=== PATIENT | female | born 1970 | race Hispanic/Latino ===

== ENCOUNTER → 2019-06-20 | Outpatient (CLI) | payer BC ==
[~2019-06-20] MED LIST: ALBUTER IH; BUDE10.2 IH; CALC1TAB PO; ESCI10TA54 PO; LEVO125T95 PO; MONT10TA24 PO; TOPI50TA24 PO; [UNRECOGNIZED DRUG - CODE] PO
== END | disposition home or self-care (01) ==
LOC: OIH 08:23
PROVIDERS: ATTEND Neurological Surgery
DX: M43.22 Fusion of spine, cervical region (principal); Z98.890 Other specified postprocedural states
CPT/HCPCS: 72040

== ENCOUNTER → 2019-09-19 | Outpatient (CLI) | payer BC | END | disposition home or self-care (01) | LOC: OIH 09:43 | PROVIDERS: ATTEND Neurological Surgery | DX: M47.812 Spondylosis without myelopathy or radiculopathy, cervical region (principal) | CPT/HCPCS: 72040 ==

== ENCOUNTER → 2020-01-12 | Outpatient (CLI) | payer BC ==
[~2020-01-12] MED LIST changes: -MONT10TA24 PO; +MONT10TA26 PO
[2020-01-12 10:21] LABS: BASOPHILS % (AUTO) 1.1 % (0.0-5.0); EOSINOPHILS % (AUTO) 2.8 % (0.0-8.0); HEMATOCRIT 36.5 % (36-48); LYMPHOCYTES % (AUTO) 35.6 % (21.0-51.0); MEAN CORPUSCULAR HEMOGLOBIN 28.8 pg (27.0-33.0); MEAN CORPUSCULAR HGB CONC 32.9 g/dL (32.0-36.0); MEAN CORPUSCULAR VOLUME 87.7 fL (79-99); MONOCYTES % (AUTO) 6.2 % (3.0-13.0); NEUTROPHILS % (AUTO) 54.1 % (40.0-77.0); PLATELET COUNT (AUTO) 280 K/uL (130-400); RED BLOOD CELL COUNT(AUTO) 4.16 MIL/uL (4.00-5.50); RED CELL DISTRIBUTION WIDTH 12.9 % (11.0-15.5); WHITE BLOOD COUNT (AUTO) 6.5 K/uL (4.8-10.8)
[2020-01-12 10:54] LABS: % IRON SATURATION 28.3 % (22-44)
== END | disposition home or self-care (01) ==
LOC: RAH 09:26
PROVIDERS: ATTEND Internal Medicine
DX: N28.1 Cyst of kidney, acquired (principal); Z90.49 Acquired absence of other specified parts of digestive tract
CPT/HCPCS: 36415; 76700; 82607; 82728; 83540; 83550; 85025

== ENCOUNTER 2020-01-17 06:56 | Day surgery (SDC) | payer BC ==
[~2020-01-17] VITALS: Ht 157.5 cm; Wt 77.1 kg
[~2020-01-17 06:56] MED LIST changes: +SODIUM CHLORIDE 0.9% 1000ML 1,000 ML IV ONE
[2020-01-17 08:20] VITALS: BP 111/80
[2020-01-17] MEDS ORDERED: PROPOFOL 10 MG/ML 20ML VIAL IV ONE (09:22)
[2020-01-17 09:43] VITALS: BP 90/56
[2020-01-17 09:48] VITALS: BP 102/57
[2020-01-17 09:52] VITALS: BP 106/70
[2020-01-17 10:01] VITALS: BP 115/75
[2020-01-17 10:11] VITALS: BP 119/64
== END 2020-01-17 10:14 | disposition home or self-care (01) ==
LOC: DAH 06:56 → ENDO 06:56
PROVIDERS: ATTEND Internal Medicine
DX: D50.9 Iron deficiency anemia, unspecified (principal); K57.30 Diverticulosis of large intestine without perforation or abscess without bleeding; K64.0 First degree hemorrhoids; K31.89 Other diseases of stomach and duodenum; K22.8 Other specified diseases of esophagus; K21.9 Gastro-esophageal reflux disease without esophagitis; F41.9 Anxiety disorder, unspecified; F32.9 Major depressive disorder, single episode, unspecified; E03.9 Hypothyroidism, unspecified; Z88.1 Allergy status to other antibiotic agents; Z90.49 Acquired absence of other specified parts of digestive tract; Z98.890 Other specified postprocedural states; Z90.710 Acquired absence of both cervix and uterus; Z98.0 Intestinal bypass and anastomosis status; Z85.850 Personal history of malignant neoplasm of thyroid; Z79.899 Other long term (current) drug therapy
CPT/HCPCS: 43239; 45378; A4215; A4221; A4222; A4223; A4606; A4620; A4663; J2704; J7030